=== PATIENT | female | born 1965 | race Caucasian/White ===

== ENCOUNTER 2017-04-09 13:03 | Inpatient (IN) | payer MEDICAID ==
[~2017-04-09] VITALS: Ht 165.1 cm; Wt 58.1 kg
[~2017-04-09 13:03] MED LIST: CITA10TA16 PO; RISO02 PO
[2017-04-09] MEDS ORDERED: SODIUM CHLORIDE 0.9% 1000ML BAG (SEPSIS BOLUS) IV ONE (16:00)
[2017-04-09 16:08] LABS: CLARITY URINE CLOUDY (CLEAR); COLOR URINE ORANGE (YELLOW); KETONES URINE TRACE (NEGATIVE); LEUKOCYTE ESTERASE URINE 1+ (NEGATIVE); NITRITE URINE POSITIVE (NEGATIVE); OCCULT BLOOD URINE NEGATIVE (NEGATIVE); PROTEIN URINE 1+ (NEGATIVE); SPECIFIC GRAVITY URINE 1.025 (1.005-1.030)
[2017-04-09] MEDS ORDERED: DILTIAZEM HCL 5MG/ML 5ML VIAL IV ONE ×2 (16:30→17:30)
[2017-04-09] MEDS ORDERED: LEVOFLOXACIN 750MG PREMIX 150 ML IV ONE (16:30)
[2017-04-09 16:44] LABS: INR 1.2; PARTIAL THROMBOPLASTIN TIME 31.5 sec (23.4-31.0); PROTHROMBIN TIME 12.2 sec (9.4-11.6)
[2017-04-09 16:46] LABS: HEMATOCRIT. 35.7 % (36.0-48.0); MEAN CORPUSCULAR HEMOGLOBIN 30.6 pg (28.0-32.0); MEAN CORPUSCULAR VOLUME 91.3 fL (81.0-99.0); PLATELET 208 x1000/uL (130-400); RED BLOOD CELL COUNT 3.91 mill/uL (4.2-5.4); RED CELL DISTRIBUTION WIDTH 12.8 % (11.6-14.6)
[2017-04-09 16:52] LABS: CARBON DIOXIDE 25 mEq/L (21-32); CHLORIDE 98 mEq/L (98-107); TROPONIN I < 0.02 ng/mL (0.00-0.04)
[2017-04-09 17:03] LABS: NUCLEATED RED BLOOD CELLS 1 /100 WBC
[2017-04-09 17:05] LABS: PLATELET ESTIMATE NORMAL
[2017-04-09] MEDS ORDERED: POTASSIUM CHLORIDE 20MEQ TABLET SR PO ONE (17:15)
[2017-04-09 17:45] LABS: *AMPHETAMINES SCREEN URINE PRESUMTIVE POSITIVE (NEGATIVE); *BARBITURATES SCREEN URINE NEGATIVE (NEGATIVE); *BENZODIAZEPINES SCREEN URINE NEGATIVE (NEGATIVE); *COCAINE SCREEN URINE NEGATIVE (NEGATIVE); CANNABINOID URINE SCREEN NEGATIVE (NEGATIVE); METHADONE URINE SCREEN NEGATIVE (NEGATIVE); OPIATES URINE SCREEN NEGATIVE (NEGATIVE); PHENCYCLIDINE URINE SCREEN NEGATIVE (NEGATIVE)
[2017-04-09 21:18] VITALS: BP 121/68
[2017-04-09 21:30] VITALS: BP 121/68
[2017-04-09 22:00] VITALS: BP 116/56
[2017-04-09] MEDS ORDERED: ONDANSETRON HCL 4MG/2ML VIAL IV PRN (23:15)
[2017-04-09] MEDS ORDERED: CLONIDINE 0.1MG TABLET PO PRN (23:15)
[2017-04-09] MEDS ORDERED: ACETAMINOPHEN 325MG TABLET PO PRN (23:15)
[2017-04-09] MEDS ORDERED: MAGNESIUM/ALUMINUM HYDROXIDE/SIMETHICONE 30ML UDC PO PRN (23:15)
[2017-04-09] MEDS ORDERED: QUET25TA PO (23:16)
[2017-04-09] MEDS ORDERED: HYDR12.529 PO (23:16)
[2017-04-09] MEDS ORDERED: ATOR10TA PO (23:16)
[2017-04-09] MEDS ORDERED: DOXE10CA2 PO (23:16)
[2017-04-10] VITALS (12 sets, daily range): BP systolic 99–129; BP diastolic 42–66
[2017-04-10 01:39] LABS: CARBON DIOXIDE 23 mEq/L (21-32)
[2017-04-10 01:58] LABS: CHLORIDE 104 mEq/L (98-107)
[2017-04-10] MEDS: ENOXAPARIN 40MG/0.4ML SYR SUBCUT SCH (02:17)
[2017-04-10] MEDS ORDERED: POTASSIUM CHLORIDE 20MEQ TABLET SR PO NR ×3 (05:30→10:45)
[2017-04-10] MEDS: HYDROCODONE/ACETAMINOPHEN 5/325MG TABLET PO PRN ×3 (06:10→20:48)
[2017-04-10 06:56] LABS: HEMOGLOBIN. 11.3 g/dL (12.0-16.0); MEAN CORPUSCULAR HEMOGLOBIN 31.3 pg (28.0-32.0); MEAN CORPUSCULAR VOLUME 91.4 fL (81.0-99.0); MEAN PLATELET VOLUME 11.1 fl (7.4-10.4); PLATELET 207 x1000/uL (130-400); RED BLOOD CELL COUNT 3.61 mill/uL (4.2-5.4); RED CELL DISTRIBUTION WIDTH 12.9 % (11.6-14.6)
[2017-04-10] MEDS ORDERED: MAGNESIUM 2 G PREMIX 50 ML IV NR (08:00)
[2017-04-10 08:14] LABS: CREATINE KINASE 32 IU/L (26-192); CREATINE KINASE MB FRACTION 2.4 ng/mL (0.5-3.6); HDL CHOLESTEROL 12 mg/dL (40-59); TROPONIN I < 0.02 ng/mL (0.00-0.04)
[2017-04-10] MEDS: ASPIRIN 81MG TABLET PO SCH (08:22)
[2017-04-10 09:28] LABS: LDL CHOLESTEROL 7 mg/dL (5-100)
[2017-04-10 10:22] LABS: CARBON DIOXIDE 27 mEq/L (21-32); CHLORIDE 105 mEq/L (98-107)
[2017-04-10] MEDS ORDERED: POTASSIUM CHLORIDE 20MEQ TABLET SR PO ONE (10:45)
[2017-04-10] MEDS ORDERED: VANCOMYCIN 1 G PREMIX 200 ML IV NR (13:00)
[2017-04-10] MEDS ORDERED: SODIUM CHLORIDE 0.9% 10ML VIAL ONE (14:50)
[2017-04-10 15:42] LABS: CREATINE KINASE 23 IU/L (26-192); CREATINE KINASE MB FRACTION 2.3 ng/mL (0.5-3.6); TROPONIN I < 0.02 ng/mL (0.00-0.04)
[2017-04-10] MEDS: DILTIAZEM HCL 30MG TABLET PO SCH ×2 (15:58→21:16)
[2017-04-10] MEDS: LEVOFLOXACIN 500MG PREMIX 100 ML IV SCH (17:07)
[2017-04-10] MEDS: VANCOMYCIN 750 MG PREMIX 150 ML IV SCH (20:48)
[2017-04-11] VITALS (12 sets, daily range): BP systolic 101–126; BP diastolic 55–70
[2017-04-11] MEDS: HYDROCODONE/ACETAMINOPHEN 5/325MG TABLET PO PRN ×4 (03:10→22:22)
[2017-04-11] MEDS: VANCOMYCIN 750 MG PREMIX 150 ML IV SCH ×2 (05:38→22:15)
[2017-04-11] MEDS: DILTIAZEM HCL 30MG TABLET PO SCH ×3 (05:39→22:14)
[2017-04-11 07:29] LABS: HEMATOCRIT. 31.6 % (36.0-48.0); HEMOGLOBIN. 10.6 g/dL (12.0-16.0); MEAN CORPUSCULAR VOLUME 92.6 fL (81.0-99.0); MEAN PLATELET VOLUME 10.7 fl (7.4-10.4); PLATELET 210 x1000/uL (130-400); RED BLOOD CELL COUNT 3.41 mill/uL (4.2-5.4)
[2017-04-11 08:02] LABS: CARBON DIOXIDE 26 mEq/L (21-32); CHLORIDE 106 mEq/L (98-107)
[2017-04-11] MEDS: ASPIRIN 81MG TABLET PO SCH (08:03)
[2017-04-11] MEDS: ENOXAPARIN 40MG/0.4ML SYR SUBCUT SCH (08:03)
[2017-04-11] MEDS: GUAIFENESIN 200MG/10ML SUGAR FREE UDC PO PRN (11:54)
[2017-04-11 12:38] LABS: PLATELET ESTIMATE NORMAL
[2017-04-11 17:00] LABS: PLATELET ESTIMATE NORMAL
[2017-04-11] MEDS: LEVOFLOXACIN 500MG PREMIX 100 ML IV SCH (17:53)
[2017-04-11] MEDS ORDERED: CEFTRIAXONE 2 G in DEXTROSE 5% WATER 50 ML IV SCH (21:00)
[2017-04-11] MEDS: AZTREONAM 1 G in DEXTROSE 5% WATER 50 ML IV SCH (21:19)
[2017-04-12] VITALS (8 sets, daily range): BP systolic 112–132; BP diastolic 54–78
[2017-04-12] MEDS: HYDROCODONE/ACETAMINOPHEN 5/325MG TABLET PO PRN ×4 (03:34→21:30)
[2017-04-12] MEDS: AZTREONAM 1 G in DEXTROSE 5% WATER 50 ML IV SCH ×3 (04:47→21:27)
[2017-04-12] MEDS: VANCOMYCIN 750 MG PREMIX 150 ML IV SCH ×3 (05:30→21:48)
[2017-04-12] MEDS: DILTIAZEM HCL 30MG TABLET PO SCH ×3 (05:30→21:29)
[2017-04-12 06:49] LABS: HEMATOCRIT. 32.4 % (36.0-48.0); HEMOGLOBIN. 10.9 g/dL (12.0-16.0); MEAN CORPUSCULAR HEMOGLOBIN 30.9 pg (28.0-32.0); MEAN CORPUSCULAR VOLUME 92.3 fL (81.0-99.0); MEAN PLATELET VOLUME 10.3 fl (7.4-10.4); PLATELET 218 x1000/uL (130-400); RED BLOOD CELL COUNT 3.52 mill/uL (4.2-5.4); RED CELL DISTRIBUTION WIDTH 13.3 % (11.6-14.6)
[2017-04-12 07:42] LABS: CARBON DIOXIDE 24 mEq/L (21-32); CHLORIDE 104 mEq/L (98-107)
[2017-04-12] MEDS: ASPIRIN 81MG TABLET PO SCH (08:33)
[2017-04-12] MEDS: ENOXAPARIN 40MG/0.4ML SYR SUBCUT SCH (08:33)
[2017-04-12 15:25] LABS: PLATELET ESTIMATE NORMAL
[2017-04-12] MEDS: GUAIFENESIN 200MG/10ML SUGAR FREE UDC PO PRN (21:29)
[2017-04-13] VITALS: BP 112/65
[2017-04-13] MEDS: GUAIFENESIN 200MG/10ML SUGAR FREE UDC PO PRN ×4 (02:04→21:45)
[2017-04-13] MEDS: HYDROCODONE/ACETAMINOPHEN 5/325MG TABLET PO PRN ×5 (02:05→22:54)
[2017-04-13 04:00] VITALS: BP 118/77
[2017-04-13] MEDS: AZTREONAM 1 G in DEXTROSE 5% WATER 50 ML IV SCH ×3 (04:43→21:46)
[2017-04-13] MEDS: VANCOMYCIN 750 MG PREMIX 150 ML IV SCH ×3 (05:22→22:53)
[2017-04-13] MEDS: DILTIAZEM HCL 30MG TABLET PO SCH ×3 (05:31→21:46)
[2017-04-13] MEDS: ASPIRIN 81MG TABLET PO SCH (07:59)
[2017-04-13 08:00] VITALS: BP 123/73
[2017-04-13] MEDS: ENOXAPARIN 40MG/0.4ML SYR SUBCUT SCH (08:00)
[2017-04-13 11:25] LABS: HEMATOCRIT. 31.1 % (36.0-48.0); HEMOGLOBIN. 10.3 g/dL (12.0-16.0); MEAN CORPUSCULAR HEMOGLOBIN 30.1 pg (28.0-32.0); MEAN CORPUSCULAR VOLUME 90.9 fL (81.0-99.0); MEAN PLATELET VOLUME 9.7 fl (7.4-10.4); PLATELET 257 x1000/uL (130-400); RED BLOOD CELL COUNT 3.42 mill/uL (4.2-5.4); RED CELL DISTRIBUTION WIDTH 13.1 % (11.6-14.6)
[2017-04-13 11:59] LABS: CHLORIDE 102 mEq/L (98-107)
[2017-04-13 12:00] VITALS: BP 114/67
[2017-04-13 12:06] LABS: CARBON DIOXIDE 24 mEq/L (21-32)
[2017-04-13 13:22] LABS: PLATELET ESTIMATE NORMAL
[2017-04-13 16:00] VITALS: BP 116/74
[2017-04-13 20:00] VITALS: BP 121/68
[2017-04-14] VITALS: BP 120/66
[2017-04-14] MEDS: HYDROCODONE/ACETAMINOPHEN 5/325MG TABLET PO PRN ×3 (03:45→13:18)
[2017-04-14] MEDS: GUAIFENESIN 200MG/10ML SUGAR FREE UDC PO PRN ×5 (03:52→21:12)
[2017-04-14 04:00] VITALS: BP 120/64
[2017-04-14 06:40] LABS: HEMATOCRIT. 32.1 % (36.0-48.0); HEMOGLOBIN. 10.5 g/dL (12.0-16.0); MEAN CORPUSCULAR HEMOGLOBIN 30.1 pg (28.0-32.0); MEAN CORPUSCULAR VOLUME 91.6 fL (81.0-99.0); PLATELET 275 x1000/uL (130-400); RED CELL DISTRIBUTION WIDTH 12.8 % (11.6-14.6)
[2017-04-14] MEDS: AZTREONAM 1 G in DEXTROSE 5% WATER 50 ML IV SCH ×3 (06:42→21:11)
[2017-04-14] MEDS: DILTIAZEM HCL 30MG TABLET PO SCH ×3 (06:42→23:33)
[2017-04-14] MEDS: VANCOMYCIN 750 MG PREMIX 150 ML IV SCH ×3 (06:42→23:32)
[2017-04-14 07:30] LABS: CARBON DIOXIDE 26 mEq/L (21-32); CHLORIDE 101 mEq/L (98-107)
[2017-04-14 08:00] VITALS: BP 117/67
[2017-04-14] MEDS: ENOXAPARIN 40MG/0.4ML SYR SUBCUT SCH (08:17)
[2017-04-14] MEDS: ASPIRIN 81MG TABLET PO SCH (08:21)
[2017-04-14 10:25] LABS: PLATELET ESTIMATE NORMAL
[2017-04-14 12:00] VITALS: BP 126/69
[2017-04-14] MEDS: HYDROCHLOROTHIAZIDE 12.5MG CAPSULE PO SCH (13:17)
[2017-04-14] MEDS ORDERED: NA PHOS,M-B/NA PHOS,DI-BA ENEMA 118ML PR PRN (15:00)
[2017-04-14 16:00] VITALS: BP 110/60
[2017-04-14] MEDS: HYDROCODONE/ACETAMINOPHEN 10/325MG TABLET PO PRN ×2 (17:54→21:12)
[2017-04-14 20:00] VITALS: BP 115/67
[2017-04-14] MEDS: DOXEPIN HCL 25MG CAPSULE PO SCH (21:10)
[2017-04-14] MEDS: QUETIAPINE FUMARATE 50MG TABLET PO SCH (21:11)
[2017-04-14] MEDS: ATORVASTATIN CALCIUM 20MG TABLET PO SCH (21:11)
[2017-04-15] VITALS: BP 98/50
[2017-04-15] MEDS: HYDROCODONE/ACETAMINOPHEN 10/325MG TABLET PO PRN ×5 (02:01→20:40)
[2017-04-15 04:00] VITALS: BP 104/66
[2017-04-15] MEDS: AZTREONAM 1 G in DEXTROSE 5% WATER 50 ML IV SCH ×2 (05:50→13:19)
[2017-04-15] MEDS: DILTIAZEM HCL 30MG TABLET PO SCH ×3 (05:52→20:33)
[2017-04-15] MEDS: VANCOMYCIN 750 MG PREMIX 150 ML IV SCH ×2 (05:52→14:31)
[2017-04-15 07:13] LABS: HEMATOCRIT. 29.8 % (36.0-48.0); MEAN CORPUSCULAR HEMOGLOBIN 30.6 pg (28.0-32.0); MEAN CORPUSCULAR VOLUME 91.1 fL (81.0-99.0); MEAN PLATELET VOLUME 10.5 fl (7.4-10.4); PLATELET 320 x1000/uL (130-400); RED BLOOD CELL COUNT 3.27 mill/uL (4.2-5.4); RED CELL DISTRIBUTION WIDTH 12.7 % (11.6-14.6)
[2017-04-15 07:50] LABS: CARBON DIOXIDE 28 mEq/L (21-32); CHLORIDE 101 mEq/L (98-107)
[2017-04-15 08:00] VITALS: BP 106/60
[2017-04-15] MEDS: HYDROCHLOROTHIAZIDE 12.5MG CAPSULE PO SCH (08:49)
[2017-04-15] MEDS: ENOXAPARIN 40MG/0.4ML SYR SUBCUT SCH (08:50)
[2017-04-15] MEDS: ASPIRIN 81MG TABLET PO SCH (08:50)
[2017-04-15] MEDS: GUAIFENESIN 200MG/10ML SUGAR FREE UDC PO PRN ×3 (10:16→20:39)
[2017-04-15 12:00] VITALS: BP 115/60
[2017-04-15 13:57] LABS: PLATELET ESTIMATE NORMAL
[2017-04-15 16:00] VITALS: BP 104/65
[2017-04-15] MEDS: CEFTRIAXONE 2 G in DEXTROSE 5% WATER 50 ML IV SCH (19:51)
[2017-04-15 20:00] VITALS: BP 121/58
[2017-04-15] MEDS: ATORVASTATIN CALCIUM 20MG TABLET PO SCH (20:32)
[2017-04-15] MEDS: DOXEPIN HCL 25MG CAPSULE PO SCH (20:32)
[2017-04-15] MEDS: QUETIAPINE FUMARATE 50MG TABLET PO SCH (20:32)
[2017-04-16] VITALS: BP 107/61
[2017-04-16] MEDS: VANCOMYCIN 750 MG PREMIX 150 ML IV SCH ×3 (00:24→14:19)
[2017-04-16] MEDS: GUAIFENESIN 200MG/10ML SUGAR FREE UDC PO PRN ×2 (03:18→14:02)
[2017-04-16] MEDS: HYDROCODONE/ACETAMINOPHEN 10/325MG TABLET PO PRN ×5 (03:19→23:09)
[2017-04-16 04:00] VITALS: BP 100/56
[2017-04-16 06:13] LABS: HEMATOCRIT. 29.7 % (36.0-48.0); MEAN CORPUSCULAR HEMOGLOBIN 30.9 pg (28.0-32.0); MEAN CORPUSCULAR VOLUME 91.5 fL (81.0-99.0); MEAN PLATELET VOLUME 10.4 fl (7.4-10.4); PLATELET 413 x1000/uL (130-400); RED BLOOD CELL COUNT 3.25 mill/uL (4.2-5.4); RED CELL DISTRIBUTION WIDTH 13.3 % (11.6-14.6)
[2017-04-16] MEDS: DILTIAZEM HCL 30MG TABLET PO SCH ×3 (06:16→21:12)
[2017-04-16 06:52] LABS: CARBON DIOXIDE 27 mEq/L (21-32); CHLORIDE 100 mEq/L (98-107)
[2017-04-16] MEDS: DOCUSATE SODIUM 100MG CAPSULE PO PRN ×3 (07:00→20:49)
[2017-04-16 08:00] VITALS: BP 122/60
[2017-04-16] MEDS: ASPIRIN 81MG TABLET PO SCH (08:20)
[2017-04-16] MEDS: HYDROCHLOROTHIAZIDE 12.5MG CAPSULE PO SCH (08:20)
[2017-04-16] MEDS: ENOXAPARIN 40MG/0.4ML SYR SUBCUT SCH (08:20)
[2017-04-16] MEDS ORDERED: SODIUM BICARBONATE 4% (2.4MEQ) 5ML VIAL IV ONE (09:27)
[2017-04-16] MEDS ORDERED: LIDOCAINE HCL 1% 20ML VIAL (Pyxis) INJ ONE (09:27)
[2017-04-16 12:00] VITALS: BP 94/54
[2017-04-16 14:10] LABS: PLATELET ESTIMATE INCREASED
[2017-04-16 16:00] VITALS: BP 105/66
[2017-04-16] MEDS: CEFTRIAXONE 2 G in DEXTROSE 5% WATER 50 ML IV SCH (18:06)
[2017-04-16 20:00] VITALS: BP 97/60
[2017-04-16] MEDS: QUETIAPINE FUMARATE 50MG TABLET PO SCH (20:49)
[2017-04-16] MEDS: ATORVASTATIN CALCIUM 20MG TABLET PO SCH (20:49)
[2017-04-16] MEDS: DOXEPIN HCL 25MG CAPSULE PO SCH (20:50)
[2017-04-16] MEDS: VANCOMYCIN 1 G PREMIX 200 ML IV SCH (21:12)
[2017-04-17] VITALS: BP 104/55
[2017-04-17 04:00] VITALS: BP 100/61
[2017-04-17] MEDS: DOCUSATE SODIUM 100MG CAPSULE PO PRN (05:05)
[2017-04-17] MEDS: DILTIAZEM HCL 30MG TABLET PO SCH ×3 (05:06→21:47)
[2017-04-17] MEDS: HYDROCODONE/ACETAMINOPHEN 10/325MG TABLET PO PRN ×4 (05:06→20:46)
[2017-04-17] MEDS: VANCOMYCIN 1 G PREMIX 200 ML IV SCH (05:06)
[2017-04-17 07:19] LABS: CARBON DIOXIDE 28 mEq/L (21-32); CHLORIDE 98 mEq/L (98-107)
[2017-04-17 07:20] LABS: HEMATOCRIT. 28.3 % (36.0-48.0); HEMOGLOBIN. 9.2 g/dL (12.0-16.0); MEAN CORPUSCULAR HEMOGLOBIN 29.9 pg (28.0-32.0); MEAN CORPUSCULAR VOLUME 92.2 fL (81.0-99.0); MEAN PLATELET VOLUME 10.7 fl (7.4-10.4); PLATELET 512 x1000/uL (130-400); RED BLOOD CELL COUNT 3.07 mill/uL (4.2-5.4); RED CELL DISTRIBUTION WIDTH 12.8 % (11.6-14.6)
[2017-04-17 08:00] VITALS: BP 131/53
[2017-04-17] MEDS: ASPIRIN 81MG TABLET PO SCH (08:14)
[2017-04-17] MEDS: HYDROCHLOROTHIAZIDE 12.5MG CAPSULE PO SCH (08:14)
[2017-04-17] MEDS: ENOXAPARIN 40MG/0.4ML SYR SUBCUT SCH (08:21)
[2017-04-17] MEDS: IPRATROPIUM/ALBUTEROL 0.5-3(2.5)MG/3ML NEB INH PRN ×2 (08:42→14:01)
[2017-04-17 12:00] VITALS: BP 92/60
[2017-04-17 16:00] VITALS: BP 122/61
[2017-04-17] MEDS: CEFTRIAXONE 2 G in DEXTROSE 5% WATER 50 ML IV SCH (18:30)
[2017-04-17 20:00] VITALS: BP 99/53
[2017-04-17] MEDS: QUETIAPINE FUMARATE 50MG TABLET PO SCH (20:36)
[2017-04-17] MEDS: ATORVASTATIN CALCIUM 20MG TABLET PO SCH (20:37)
[2017-04-17] MEDS: DOXEPIN HCL 25MG CAPSULE PO SCH (20:37)
[2017-04-17] MEDS: GUAIFENESIN 200MG/10ML SUGAR FREE UDC PO PRN (20:48)
[2017-04-18] VITALS: BP 93/56
[2017-04-18 04:00] VITALS: BP 97/57
[2017-04-18] MEDS: GUAIFENESIN 200MG/10ML SUGAR FREE UDC PO PRN ×4 (04:16→20:28)
[2017-04-18] MEDS: HYDROCODONE/ACETAMINOPHEN 10/325MG TABLET PO PRN ×4 (04:16→20:28)
[2017-04-18] MEDS: DILTIAZEM HCL 30MG TABLET PO SCH ×3 (06:00→22:00)
[2017-04-18 06:53] LABS: HEMATOCRIT. 27.4 % (36.0-48.0); HEMOGLOBIN. 8.9 g/dL (12.0-16.0); MEAN CORPUSCULAR HEMOGLOBIN 29.7 pg (28.0-32.0); MEAN CORPUSCULAR VOLUME 91.3 fL (81.0-99.0); MEAN PLATELET VOLUME 10.4 fl (7.4-10.4); PLATELET 586 x1000/uL (130-400); RED CELL DISTRIBUTION WIDTH 12.9 % (11.6-14.6)
[2017-04-18 07:23] LABS: CARBON DIOXIDE 29 mEq/L (21-32); CHLORIDE 97 mEq/L (98-107)
[2017-04-18 08:00] VITALS: BP 101/60
[2017-04-18] MEDS: ASPIRIN 81MG TABLET PO SCH (08:29)
[2017-04-18] MEDS: ENOXAPARIN 40MG/0.4ML SYR SUBCUT SCH (08:29)
[2017-04-18] MEDS: HYDROCHLOROTHIAZIDE 12.5MG CAPSULE PO SCH (08:29)
[2017-04-18 12:00] VITALS: BP 105/64
[2017-04-18 13:44] LABS: PLATELET ESTIMATE INCREASED
[2017-04-18 16:00] VITALS: BP 112/75
[2017-04-18] MEDS: CEFTRIAXONE 2 G in DEXTROSE 5% WATER 50 ML IV SCH (17:24)
[2017-04-18 20:00] VITALS: BP 105/64
[2017-04-18] MEDS: DOXEPIN HCL 25MG CAPSULE PO SCH (20:16)
[2017-04-18] MEDS: QUETIAPINE FUMARATE 50MG TABLET PO SCH (20:16)
[2017-04-18] MEDS: ATORVASTATIN CALCIUM 20MG TABLET PO SCH (20:16)
[2017-04-18 22:54] LABS: PLATELET ESTIMATE INCREASED
[2017-04-19] VITALS: BP 95/68
[2017-04-19 04:00] VITALS: BP 106/64
[2017-04-19] MEDS: GUAIFENESIN 200MG/10ML SUGAR FREE UDC PO PRN ×4 (04:01→20:23)
[2017-04-19] MEDS: IPRATROPIUM/ALBUTEROL 0.5-3(2.5)MG/3ML NEB INH PRN (04:54)
[2017-04-19] MEDS: DILTIAZEM HCL 30MG TABLET PO SCH ×3 (05:46→21:16)
[2017-04-19] MEDS: HYDROCODONE/ACETAMINOPHEN 10/325MG TABLET PO PRN ×4 (05:47→20:24)
[2017-04-19 07:00] LABS: HEMATOCRIT. 27.1 % (36.0-48.0); HEMOGLOBIN. 8.8 g/dL (12.0-16.0); MEAN CORPUSCULAR HEMOGLOBIN 29.9 pg (28.0-32.0); MEAN CORPUSCULAR VOLUME 91.9 fL (81.0-99.0); MEAN PLATELET VOLUME 10.5 fl (7.4-10.4); PLATELET 632 x1000/uL (130-400); RED BLOOD CELL COUNT 2.95 mill/uL (4.2-5.4); RED CELL DISTRIBUTION WIDTH 12.8 % (11.6-14.6)
[2017-04-19 08:00] VITALS: BP 98/60
[2017-04-19 08:49] LABS: CARBON DIOXIDE 28 mEq/L (21-32); CHLORIDE 98 mEq/L (98-107)
[2017-04-19] MEDS: DOCUSATE SODIUM 100MG CAPSULE PO PRN ×2 (10:19→18:55)
[2017-04-19] MEDS: HYDROCHLOROTHIAZIDE 12.5MG CAPSULE PO SCH (10:19)
[2017-04-19] MEDS: ASPIRIN 81MG TABLET PO SCH (10:19)
[2017-04-19] MEDS: ENOXAPARIN 40MG/0.4ML SYR SUBCUT SCH (10:20)
[2017-04-19 12:00] VITALS: BP 99/60
[2017-04-19 13:49] LABS: PLATELET ESTIMATE MARKEDLY INCREASED
[2017-04-19] MEDS ORDERED: NA PHOS,M-B/NA PHOS,DI-BA ENEMA 118ML PR NR (14:45)
[2017-04-19 16:00] VITALS: BP 96/62
[2017-04-19] MEDS: CEFTRIAXONE 2 G in DEXTROSE 5% WATER 50 ML IV SCH (18:55)
[2017-04-19 20:00] VITALS: BP 90/55
[2017-04-19] MEDS: ATORVASTATIN CALCIUM 20MG TABLET PO SCH (20:15)
[2017-04-19] MEDS: DOXEPIN HCL 25MG CAPSULE PO SCH (20:15)
[2017-04-19] MEDS: QUETIAPINE FUMARATE 50MG TABLET PO SCH (20:15)
[2017-04-20] VITALS: BP 93/59
[2017-04-20] MEDS: HYDROCODONE/ACETAMINOPHEN 10/325MG TABLET PO PRN ×4 (01:07→23:58)
[2017-04-20] MEDS: GUAIFENESIN 200MG/10ML SUGAR FREE UDC PO PRN ×4 (01:07→20:42)
[2017-04-20] MEDS: DILTIAZEM HCL 30MG TABLET PO SCH ×3 (06:00→21:45)
[2017-04-20 08:00] VITALS: BP_SYST 107; BP_SYST 114; BP_DIAS 67; BP_DIAS 73
[2017-04-20] MEDS: ASPIRIN 81MG TABLET PO SCH (09:14)
[2017-04-20] MEDS: ENOXAPARIN 40MG/0.4ML SYR SUBCUT SCH (09:14)
[2017-04-20] MEDS: HYDROCHLOROTHIAZIDE 12.5MG CAPSULE PO SCH (09:14)
[2017-04-20] MEDS ORDERED: POTASSIUM CHLORIDE 20MEQ TABLET SR PO NR (11:30)
[2017-04-20 12:00] VITALS: BP 138/75
[2017-04-20 12:36] LABS: HEMATOCRIT. 26.1 % (36.0-48.0); HEMOGLOBIN. 8.5 g/dL (12.0-16.0); MEAN CORPUSCULAR HEMOGLOBIN 29.8 pg (28.0-32.0); MEAN CORPUSCULAR VOLUME 91.1 fL (81.0-99.0); MEAN PLATELET VOLUME 9.8 fl (7.4-10.4); PLATELET 577 x1000/uL (130-400); RED BLOOD CELL COUNT 2.86 mill/uL (4.2-5.4); RED CELL DISTRIBUTION WIDTH 12.9 % (11.6-14.6)
[2017-04-20 13:59] LABS: PLATELET ESTIMATE INCREASED
[2017-04-20 14:24] LABS: CARBON DIOXIDE 30 mEq/L (21-32); CHLORIDE 95 mEq/L (98-107)
[2017-04-20 16:00] VITALS: BP 106/69
[2017-04-20] MEDS: CEFTRIAXONE 2 G in DEXTROSE 5% WATER 50 ML IV SCH (18:04)
[2017-04-20 20:00] VITALS: BP 94/58
[2017-04-20] MEDS: QUETIAPINE FUMARATE 50MG TABLET PO SCH (20:42)
[2017-04-20] MEDS: DOXEPIN HCL 25MG CAPSULE PO SCH (20:42)
[2017-04-20] MEDS: ATORVASTATIN CALCIUM 20MG TABLET PO SCH (20:42)
[2017-04-21] VITALS: BP 103/62
[2017-04-21 04:00] VITALS: BP 130/77
[2017-04-21] MEDS: GUAIFENESIN 200MG/10ML SUGAR FREE UDC PO PRN ×2 (05:15→11:29)
[2017-04-21] MEDS: DILTIAZEM HCL 30MG TABLET PO SCH ×3 (05:16→21:26)
[2017-04-21] MEDS: HYDROCODONE/ACETAMINOPHEN 10/325MG TABLET PO PRN ×3 (05:16→19:12)
[2017-04-21 07:36] LABS: BASOPHILS % 1.3 % (0.0-2.0); EOSINOPHILS % 0.6 % (0.0-5.0); HEMATOCRIT. 27.3 % (36.0-48.0); HEMOGLOBIN. 8.8 g/dL (12.0-16.0); MEAN CORPUSCULAR HEMOGLOBIN 29.4 pg (28.0-32.0); MEAN CORPUSCULAR VOLUME 91.6 fL (81.0-99.0); MEAN PLATELET VOLUME 10.5 fl (7.4-10.4); MONOCYTES % 8.4 % (2.0-8.0); NEUTROPHILS % 68.7 % (40.0-76.0); PLATELET 624 x1000/uL (130-400); RED BLOOD CELL COUNT 2.98 mill/uL (4.2-5.4); RED CELL DISTRIBUTION WIDTH 12.7 % (11.6-14.6)
[2017-04-21 08:00] VITALS: BP 93/60
[2017-04-21 08:23] LABS: CARBON DIOXIDE 28 mEq/L (21-32); CHLORIDE 97 mEq/L (98-107)
[2017-04-21] MEDS: ENOXAPARIN 40MG/0.4ML SYR SUBCUT SCH (08:55)
[2017-04-21] MEDS: ASPIRIN 81MG TABLET PO SCH (08:55)
[2017-04-21] MEDS: HYDROCHLOROTHIAZIDE 12.5MG CAPSULE PO SCH (09:00)
[2017-04-21 12:00] VITALS: BP 90/57
[2017-04-21 16:00] VITALS: BP 110/68
[2017-04-21] MEDS: CEFTRIAXONE 2 G in DEXTROSE 5% WATER 50 ML IV SCH (17:09)
[2017-04-21 20:00] VITALS: BP 96/48
[2017-04-21] MEDS: QUETIAPINE FUMARATE 50MG TABLET PO SCH (21:24)
[2017-04-21] MEDS: ATORVASTATIN CALCIUM 20MG TABLET PO SCH (21:24)
[2017-04-21] MEDS: DOXEPIN HCL 25MG CAPSULE PO SCH (21:24)
[2017-04-22] VITALS: BP 90/58
[2017-04-22] MEDS: GUAIFENESIN 200MG/10ML SUGAR FREE UDC PO PRN (00:28)
[2017-04-22] MEDS: HYDROCODONE/ACETAMINOPHEN 10/325MG TABLET PO PRN ×3 (00:33→11:27)
[2017-04-22 04:00] VITALS: BP 91/57
[2017-04-22] MEDS: DILTIAZEM HCL 30MG TABLET PO SCH (05:50)
[2017-04-22 08:00] VITALS: BP 89/57
[2017-04-22] MEDS: HYDROCHLOROTHIAZIDE 12.5MG CAPSULE PO SCH (09:00)
[2017-04-22] MEDS: ASPIRIN 81MG TABLET PO SCH (10:41)
[2017-04-22] MEDS: ENOXAPARIN 40MG/0.4ML SYR SUBCUT SCH (10:41)
[2017-04-22 12:00] VITALS: BP 87/56
[2017-04-22 16:00] VITALS: BP 84/52
[2017-04-22 16:20] VITALS: BP 87/56
== END 2017-04-22 17:00 | disposition home health service (06) | DRG 720 ==
LOC: ER 13:11 → 3WST 16:45 → EDBEDREQ 16:46 → EDBEDREQTM 16:46 → EDBEDREQSVC 17:29 → EDBEDREQTM 17:29 → EDBEDREQ 17:29 → ENRESERV 20:10 → 5WST 04-12 04:27
PROVIDERS: ADMIT Internal Medicine; ATTEND Internal Medicine
PROC: 02HV33Z Insertion of Infusion Device into Superior Vena Cava, Percutaneous Approach (ICD-10-PCS; principal; 2017-04-16)
PROC: B548ZZA Ultrasonography of Superior Vena Cava, Guidance (ICD-10-PCS; 2017-04-16)
DX: A40.9 Streptococcal sepsis, unspecified (principal); J96.00 Acute respiratory failure, unspecified whether with hypoxia or hypercapnia; J90 Pleural effusion, not elsewhere classified; J18.9 Pneumonia, unspecified organism; I31.3 Pericardial effusion (noninflammatory); E87.2 Acidosis; E83.42 Hypomagnesemia; I47.1 Supraventricular tachycardia; I48.0 Paroxysmal atrial fibrillation; N39.0 Urinary tract infection, site not specified; E87.6 Hypokalemia; I10 Essential (primary) hypertension; F17.210 Nicotine dependence, cigarettes, uncomplicated; F15.10 Other stimulant abuse, uncomplicated; E78.5 Hyperlipidemia, unspecified; D64.9 Anemia, unspecified; F32.9 Major depressive disorder, single episode, unspecified; F99 Mental disorder, not otherwise specified; B96.20 Unspecified Escherichia coli [E. coli] as the cause of diseases classified elsewhere; J44.9 Chronic obstructive pulmonary disease, unspecified; Z88.0 Allergy status to penicillin; Z79.899 Other long term (current) drug therapy; Z75.1 Person awaiting admission to adequate facility elsewhere; Z79.82 Long term (current) use of aspirin
CPT/HCPCS: 36415; 36569; 71010; 71045; 71250; 76937; 77001; 78582; 80048; 80061; 80202; 80305; 81001; 82550; 82553; 83605; 83615; 83735; 83880; 84145; 84443; 84484; 85025; 85379; 85610; 85730; 87040; 87070; 87077; 87086; 87186; 87804; 93005; 93306; 94640; 94664; 96374; 96375; 96376; 99291; A4216; A9558; C1725; C1893; J0696; J1650; J1956; J3370; J3475; J3490; J7030; J7040; J7050; J7060; J7620